=== PATIENT | female | born 1985 | race Caucasian/White ===

== ENCOUNTER 2021-05-11 16:26 | Emergency (ER) | payer OTHER, SELFPAY ==
[2021-05-11 16:36] VITALS: BP 151/98; PULSE 103; RESP 18; TEMP 37.2; O2SAT 98
[2021-05-11 16:45] VITALS: BP 151/98; PULSE 103; RESP 18; TEMP 37.2; O2SAT 98
--- NOTE | 2021-05-11 16:49 | ED.URI ---
HPI - URI/Sore Throat General Chief Complaint: Upper Respiratory Infection Stated Complaint: Sinus Time Seen by Provider: 05/11/21 16:50 Source: patient Mode of arrival: ambulatory Limitations: no limitations History of Present Illness HPI Narrative: Perlita Vickers is a 35 yo female with PMH of anxiety who [facility] with green discharge from her nose and coughing she has chronic sinus issues and has multiple sinus infections each year. She is in symptoms last 4 to 5 days and things are worsening. Currently is not febrile voices normal but she is clearly congested; has been taking [id number] medication using humidifier at night Related Data Home Medications Medication Instructions Recorded Confirmed cholecalciferol (vitamin D3) 125 mcg PO DAILY 05/11/21 05/11/21 clonazepam 1 mg PO DAILY 05/11/21 05/11/21 escitalopram oxalate 20 mg PO DAILY 05/11/21 05/11/21 hydroxyzine HCl 25 mg PO PRN PRN 05/11/21 05/11/21 Allergies Allergy/AdvReac Type Severity Reaction Status Date / Time amoxicillin Allergy Intermediate Hives / Verified 05/11/21 16:45 Red Face strawberry AdvReac Intermediate THROAT Verified 05/11/21 16:45 SWELLS Chlorine AdvReac Intermediate SWELLING Uncoded 05/11/21 16:45 Review of Systems Review of Systems: CONSTITUTIONAL: Denies fever, chills, sweats. EYES: Denies visual changes, redness, discharge. ENT: Has rhinorrhea, has congestion, sore throat, otalgia. CARDIOVASCULAR: Denies chest pain, palpitations, edema. RESPIRATORY: Denies dyspnea, wheezing, has productive cough GASTROINTESTINAL: Denies abdominal pain, nausea, vomiting, diarrhea. GENITOURINARY: Denies dysuria, hematuria, abnormal discharge SKIN: Denies rash or itching. NEUROLOGIC: Denies numbness, or focal weakness. PSYCHIATRIC: Denies anxiety or depression. [facility] Past Medical History Medical History No acute medical problems Family History Family History Mother Hypertension Father Diabetes mellitus Social History Social History (Updated 05/11/21 @ 17:00 by Patricia Pichardo CNP) Smoking packs per day: 0.45 Smoking cigarettes per day: 9.0 Smoking status: Current every day smoker Additional smoking assessment comments: Gradually trying to cut back cigarette consumption Alcohol intake: never Living arrangements: with family Occupation/Education: student Comments At time of signature, I agree with nursing past medical, surgical, social and family history. There is no relevant family history pertinent to the presenting complaint. Exam Narrative: GENERAL: This is a well-nourished, well-developed patient, in mild distress. HEAD: normocephalic, atraumatic. EYES: Sclera clear/white. Vision is grossly intact. EARS: External ears normal, auditory canals erythema and without drainage, TMs bulging without perforation. Hearing grossly intact. NOSE: External nose normal with nasal discharge, nares without redness, has rhinorrhea. THROAT: Mucous membranes moist, posterior pharynx mild erythema NECK: Neck supple, CARDIOVASCULAR: Regular rate and rhythm without murmurs, gallops, or rubs. RESPIRATORY: Clear to auscultation. Breath sounds equal bilaterally. No wheezes, rales, or rhonchi. GASTROINTESTINAL: Abdomen soft, SKIN: warm, intact with no suspicious lesions or rash, good texture and turgor. NEURO: awake, alert, and oriented to person, place and time. There were no obvious focal neurologic abnormalities. Steady gait EXTREMITIES: Normal range of motion. BACK: Nontender without deformity Course Course Emergency Course: Patient comes with 4 to 5 days of chronic congestion green mucus and ear pain, has productive cough. History of multiple sinus infection Discussed antibiotic stewardship and treatment in the past and started on steroids and Z-Jovani Vital Signs Vital signs: Vital Signs Temperat
== END 2021-05-11 17:04 | disposition home or self-care (01) ==
LOC: EXPTROY 16:28
PROVIDERS: Emergency Provider Nurse Practitioner
DX: J01.11 Acute recurrent frontal sinusitis (principal); F17.200 Nicotine dependence, unspecified, uncomplicated; F41.9 Anxiety disorder, unspecified
CPT/HCPCS: 99213; G0463

== ENCOUNTER 2022-08-06 10:03 | Emergency (ER) | payer OTHER, SELFPAY ==
[2022-08-06 10:13] VITALS: BP 149/88; PULSE 115; RESP 18; TEMP 36.6; O2SAT 100
[2022-08-06 10:19] VITALS: BP 149/88; PULSE 115; RESP 18; TEMP 36.6; O2SAT 100
--- NOTE | 2022-08-06 10:21 | ED.URI ---
HPI - URI/Sore Throat General Chief Complaint: Upper Respiratory Infection Stated Complaint: Lt Facial Swelling,Bilateral Ear Irritation Time Seen by Provider: 08/06/22 10:14 Source: patient Mode of arrival: ambulatory Limitations: no limitations History of Present Illness HPI Narrative: Patient presents today with a 4 week history of sinus pressure, postnasal drip, frontal headache. States the left side of her face also feels swollen. Denies fever or cough. She has been taking Tylenol for her headache. States she also takes hydroxyzine for her anxiety. Related Data Home Medications Medication Instructions Recorded Confirmed hydroxyzine HCl 25 mg tablet 25 mg PO PRN PRN Anxiety 05/11/21 08/06/22 buspirone 15 mg tablet 15 mg PO TID 08/06/22 08/06/22 lisinopril 30 mg tablet 30 mg PO DAILY 08/06/22 08/06/22 propranolol 10 mg tablet 10 mg DAILY 08/06/22 08/06/22 venlafaxine 75 mg capsule,extended 75 mg PO DAILY 08/06/22 08/06/22 release 24 hr Allergies Allergy/AdvReac Type Severity Reaction Status Date / Time amoxicillin Allergy Intermediate Hives / Verified 08/06/22 10:16 Red Face strawberry AdvReac Intermediate THROAT Verified 08/06/22 10:16 SWELLS Chlorine AdvReac Intermediate SWELLING Uncoded 08/06/22 10:16 Review of Systems Review of Systems: CONSTITUTIONAL: Denies body aches, fever, chills, or sweats. EYES: Denies visual changes, redness, or discharge. ENT: Denies rhinorrhea, congestion, sore throat, or otalgia.+ sinus pressure, postnasal drip CARDIOVASCULAR: Denies chest pain, palpitations, or edema. RESPIRATORY: Denies cough or dyspnea. GASTROINTESTINAL: Denies abdominal pain, nausea, vomiting, or diarrhea. GENITOURINARY: Denies dysuria or hematuria. SKIN: Denies rash, itching, or wounds. MUSCULOSKELETAL: Denies back pain, joint pain, or myalgia. NEUROLOGIC: Denies numbness, tingling, or weakness.+ frontal headache PSYCH: Denies depression or anxiety. PMFSH Past Medical History Medical History No acute medical problems Family History Family History Mother Hypertension Father Diabetes mellitus Social History Social History Smoking packs per day: 0.45 Smoking cigarettes per day: 9.0 Smoking status: Current every day smoker Additional smoking assessment comments: Gradually trying to cut back cigarette consumption Alcohol intake: never Comments At time of signature, I have reviewed and agree with nursing past medical, surgical, social and family history unless otherwise noted. Please see nursing chart for further information. There is no relevant family history pertinent to the presenting complaint Exam Narrative: GENERAL: Mildly ill appearing, well-nourished, and in no acute distress. HEAD: Normocephalic, atraumatic. EYES: EOMI. No redness or drainage. Conjunctivae normal. ENT: Mucous membranes pink and moist. Nares mildly congested. No rhinorrhea. TMs normal bilaterally. Throat normal with small amount of postnasal drainage. Uvula midline. Left frontal sinus tenderness. NECK: Normal AROM. Supple. No lymphadenopathy. CHEST: No respiratory distress. Clear to auscultation. HEART: Regular rate and rhythm. No murmur appreciated. Normal peripheral pulses. EXTREMITIES: Normal range of motion. No edema. SKIN: Warm, dry, no rash. Capillary refill normal. Normal skin turgor. NEURO: No focal deficits. Alert and oriented x3. Gait steady. PSYCH: Normal affect. No signs of depression or anxiety. Course Course Level of Care: Express Care Visit Vital Signs Vital signs: Vital Signs Temperature 97.8 F 08/06/22 10:13 Pulse Rate 115 H 08/06/22 10:13 Respiratory Rate 18 08/06/22 10:13 Blood Pressure 149/88 H 08/06/22 10:13 Pulse Oximetry 100 08/06/22 10:13 Oxygen Delivery Room
== END 2022-08-06 10:27 | disposition home or self-care (01) ==
PROVIDERS: Emergency Provider Nurse Practitioner
DX: J32.9 Chronic sinusitis, unspecified (principal); F41.9 Anxiety disorder, unspecified; F17.210 Nicotine dependence, cigarettes, uncomplicated
CPT/HCPCS: 99213; G0463

== ENCOUNTER 2022-08-15 16:44 | Emergency (ER) | payer OTHER, SELFPAY ==
--- NOTE | 2022-08-15 16:51 | ED.URI ---
HPI - URI/Sore Throat General Chief Complaint: Upper Respiratory Infection Stated Complaint: Sinus Time Seen by Provider: 08/15/22 16:58 Source: patient Mode of arrival: ambulatory Limitations: no limitations History of Present Illness HPI Narrative: Perlita is a 36-year-old female patient presenting to clinic today with complaints of sinus congestion times 5 weeks. She reports that she was seen approximately 2 weeks ago was given doxycycline for sinus infection and this did not improve her symptoms. She reports a lot of pressure on her left maxillary and frontal sinuses. MD elicited complaint: nasal congestion and sinus pain Related Data Home Medications Medication Instructions Recorded Confirmed hydroxyzine HCl 25 mg tablet 25 mg PO PRN PRN Anxiety 05/11/21 08/06/22 buspirone 15 mg tablet 15 mg PO TID 08/06/22 08/06/22 lisinopril 30 mg tablet 30 mg PO DAILY 08/06/22 08/06/22 propranolol 10 mg tablet 10 mg DAILY 08/06/22 08/06/22 venlafaxine 75 mg capsule,extended 75 mg PO DAILY 08/06/22 08/06/22 release 24 hr Allergies Allergy/AdvReac Type Severity Reaction Status Date / Time amoxicillin Allergy Intermediate Hives / Verified 08/06/22 10:16 Red Face strawberry AdvReac Intermediate THROAT Verified 08/06/22 10:16 SWELLS Chlorine AdvReac Intermediate SWELLING Uncoded 08/06/22 10:16 Review of Systems Review of Systems: Pertinent positives per HPI. Patient denies any fever, chills, rash, headache, visual changes, dizziness, cough, shortness of breath, chest pain, palpitations, nausea, vomiting, diarrhea, constipation, abdominal pain, or any urinary issues. [facility] Past Medical History Medical History No acute medical problems Family History Family History Mother Hypertension Father Diabetes mellitus Social History Social History Smoking packs per day: 0.45 Smoking cigarettes per day: 9.0 Smoking status: Current every day smoker Additional smoking assessment comments: Gradually trying to cut back cigarette consumption Alcohol intake: never Comments At the time of my signature, I reviewed and agree with the nursing past medical, surgical, social, and family history. There is no relevant family history pertinent to the patient complaint. Exam Narrative: General: Well-developed,obese, in no apparent distress Head: Normocephalic, atraumatic Eyes: Pupils equally round and reactive to light bilaterally, EOM intact, sclera and conjunctive clear, no discharge, lids normal Ears: TMs intact and clear, ear canals clear, no drainage, grossly hearing normal. Nose: Nares patent, yellow discharge, severe inflammation with sores in the anterior near and white straei, left maxillary and frontal sinus tenderness. Mouth: Oral pharynx without lesions or masses, good dentition, MMM. postnasal drip Neck: Supple, trachea midline, no enlargement of anterior or posterior cervical nodes, no thyroid masses or goiter palpable. Cardio: Regular rate and rhythm, s1 and s2 normal, no murmur appreciated. Resp: Clear to auscultation bilaterally, no rhonchi, rales, wheezing or rubs Course Course Emergency Course: Portions of this record may have been created with voice recognition software. Level of Care: Express Care Visit Vital Signs Vital signs: Vital Signs Temperature 36.8 C 08/15/22 16:55 Pulse Rate 109 H 08/15/22 16:55 Respiratory Rate 18 08/15/22 16:55 Blood Pressure 131/88 08/15/22 16:55 Pulse Oximetry 99 08/15/22 16:55 Oxygen Delivery Room Air 08/15/22 16:55 Temperature 36.8 C 08/15/22 16:55 Pulse Rate 109 H 08/15/22 16:55 Respiratory Rate 18 08/15/22 16:55 Blood Pressure 131/88 08/15/22 16:55 Pulse Oximetry 99 08/15/22 16:55 Oxygen Delivery Room Air 08/15/22 16:55 Vit
[2022-08-15 16:55] VITALS: BP 131/88; PULSE 109; RESP 18; TEMP 36.8; O2SAT 99
== END 2022-08-15 17:09 | disposition home or self-care (01) ==
PROVIDERS: Emergency Provider Nurse Practitioner Family
DX: J01.90 Acute sinusitis, unspecified (principal); F17.210 Nicotine dependence, cigarettes, uncomplicated
CPT/HCPCS: 99213; G0463

== ENCOUNTER 2022-08-18 17:50 | Emergency (ER) | payer OTHER, SELFPAY ==
[2022-08-18 17:58] VITALS: BP 122/81; PULSE 82; RESP 16; TEMP 36.2; O2SAT 100
--- NOTE | 2022-08-18 19:03 | ED.ALLEREA ---
HPI - Allergic Reaction General Chief complaint: Allergic Reaction Stated complaint: Allergic Reaction Source: patient Mode of arrival: ambulatory Limitations: no limitations History of Present Illness HPI narrative: 36-year-old female presents to [facility] with complaints of very minimal swelling and tingling sensation to her lips and tongue since this morning after taking her dose of cefdinir. Patient reports that she was placed on cefdinir here 3 days ago for sinusitis. Patient reports that she takes hydroxyzine 50 mg 4 times a day for anxiety. Patient reports that she called her primary care provider who suggested that she come back here for an evaluation. Patient denies shortness of breath, wheezing, trouble swallowing or difficulty breathing. Patient denies rash. Patient reports that she has a history of allergic reactions to penicillin where she noticed a rash at that time. Patient reports that she feels like her sinus symptoms have slightly improved. Patient has been taking Flonase daily. MD complaint: other ( mild lip and tongue swelling) Onset (ago): hour(s) (10) Symptoms: lip swelling Severity: mild Treatment prior to arrival: steroids Related Data Home Medications Medication Instructions Recorded Confirmed hydroxyzine HCl 25 mg tablet 25 mg PO PRN PRN Anxiety 05/11/21 08/18/22 buspirone 15 mg tablet 15 mg PO TID 08/06/22 08/18/22 lisinopril 30 mg tablet 30 mg PO DAILY 08/06/22 08/18/22 propranolol 10 mg tablet 10 mg DAILY 08/06/22 08/18/22 venlafaxine 75 mg capsule,extended 75 mg PO DAILY 08/06/22 08/18/22 release 24 hr Allergies Allergy/AdvReac Type Severity Reaction Status Date / Time amoxicillin Allergy Intermediate Hives / Verified 08/18/22 18:33 Red Face strawberry AdvReac Intermediate THROAT Verified 08/18/22 18:33 SWELLS Chlorine AdvReac Intermediate SWELLING Uncoded 08/18/22 18:33 Review of Systems Constitutional: Constitutional: Denies chills, Denies fatigue, Denies fever(s) and Denies weakness ENT: Denies vertigo, Denies dizziness and Denies epistaxis Gastrointestinal: Gastrointestinal: Denies diarrhea, Denies nausea and Denies vomiting Musculoskeletal: Musculoskeletal: Denies arthralgias and Denies joint swelling Integumentary/Breasts: Comments: Very mild swelling and tingling sensation to lips and tongue Neurologic: Denies vertigo, Denies dizziness and Denies syncope [facility] Past Medical History Medical History No acute medical problems Family History Family History Mother Hypertension Father Diabetes mellitus Social History Social History Smoking packs per day: 0.45 Smoking cigarettes per day: 9.0 Smoking status: Current every day smoker Additional smoking assessment comments: Gradually trying to cut back cigarette consumption Alcohol intake: never Comments At time of signature, I agree with nursing past medical, surgical, social and family history. There is no relevant family history pertinent to the presenting complaint. Exam Const: General: healthy appearing, no acute distress and alert Nutritional Appearance: well nourished and obese Orientation/consciousness: patient oriented x3 Limitations: no limitations HENMT: Head: normal to inspection Ears: external ears normal and TM's normal bilaterally Face and sinus: normal facial exam Mouth: Yes Normal oral and palatal mucosa present, Yes lip normal and Yes moist mucous membranes Throat: posterior oropharynx normal and uvula midline Other: very mild sinus tenderness noted to left frontal; no obvious swelling noted to lips or tongue on examination. Eyes: Conjunctivae: conjunctivae normal Pupils: Equal, round and reactive pupils present Neck: Neck: normal visual inspection Resp: Effort & Inspection: normal respiratory effo
== END 2022-08-18 19:16 | disposition home or self-care (01) ==
PROVIDERS: Emergency Provider Nurse Practitioner Family
DX: R22.0 Localized swelling, mass and lump, head (principal); T36.1X5A Adverse effect of cephalosporins and other beta-lactam antibiotics, initial encounter; F17.210 Nicotine dependence, cigarettes, uncomplicated
CPT/HCPCS: 99211; G0463

== ENCOUNTER 2022-08-30 13:57 | Emergency (ER) | payer OTHER, SELFPAY | END 2022-08-30 15:10 | disposition left against medical advice (07) | PROVIDERS: Emergency Provider Internal Medicine Hematology & Oncology | DX: Z53.21 Procedure and treatment not carried out due to patient leaving prior to being seen by health care provider (principal) | CPT/HCPCS: 99199 ==

== ENCOUNTER 2022-10-13 11:14 | Emergency (ER) | payer OTHER, SELFPAY ==
[2022-10-13 11:57] VITALS: BP 126/108; PULSE 98; RESP 18; TEMP 36.5; O2SAT 98
--- NOTE | 2022-10-13 12:40 | ED.SKABFB ---
HPI - Skin/Abscess/Foreign Bdy General Chief complaint: Skin/Abscess/Foreign Body Stated complaint: rash Source: patient Mode of arrival: ambulatory Limitations: no limitations History of Present Illness HPI narrative: 36-year-old female presents to [facility] complains of rash underneath bilateral breasts for the last 10 days. Patient reports that she gets frequent ?sweat rashes under her breast frequently. Patient reports that she use [id number] Lotrimin cream and zinc oxide which then exacerbated the rash. Patient denies fever, body aches, chills, nausea, vomiting or diarrhea. MD complaint: rash Onset (ago): day(s) () Relieving factors: none Exacerbating factors: none Context: none Associated symptoms: denies other symptoms Treatments prior to arrival: OTC topical medication Related Data Home Medications Medication Instructions Recorded Confirmed hydroxyzine HCl 25 mg tablet 25 mg PO PRN PRN Anxiety 05/11/21 10/13/22 buspirone 15 mg tablet 15 mg PO TID 08/06/22 10/13/22 lisinopril 30 mg tablet 30 mg PO DAILY 08/06/22 10/13/22 propranolol 10 mg tablet 10 mg DAILY 08/06/22 10/13/22 venlafaxine 75 mg capsule,extended 75 mg PO DAILY 08/06/22 10/13/22 release 24 hr pantoprazole 40 mg tablet,delayed 40 mg PO DIRECTED 10/13/22 10/13/22 release Allergies Allergy/AdvReac Type Severity Reaction Status Date / Time amoxicillin Allergy Intermediate Hives / Verified 08/18/22 18:33 Red Face cefdinir Allergy Intermediate Swelling Verified 10/13/22 12:13 of Lip/Tongue/Throat strawberry AdvReac Intermediate THROAT Verified 08/18/22 18:33 SWELLS Chlorine AdvReac Intermediate SWELLING Uncoded 08/18/22 18:33 Review of Systems Constitutional: Constitutional: Denies chills, Denies fatigue, Denies fever(s) and Denies weakness ENT: Denies dizziness and Denies epistaxis Cardiovascular: Cardiovascular: Denies chest pain Respiratory: Respiratory: Denies cough, Denies dyspnea and Denies wheezing Gastrointestinal: Gastrointestinal: Denies diarrhea, Denies nausea and Denies vomiting Integumentary/Breasts: Skin/Breast: Denies pruritus, Denies erythema, Reports rash and Denies skin ulcer PMFSH Past Medical History Medical History No acute medical problems Family History Family History Mother Hypertension Father Diabetes mellitus Social History Social History Smoking packs per day: 0.45 Smoking cigarettes per day: 9.0 Smoking status: Current every day smoker Additional smoking assessment comments: Gradually trying to cut back cigarette consumption Alcohol intake: never Living arrangements: with family Occupation/Education: student Comments At time of signature, I agree with nursing past medical, surgical, social and family history. There is no relevant family history pertinent to the presenting complaint. Exam Const: General: healthy appearing and no acute distress Nutritional Appearance: well nourished Orientation/consciousness: patient oriented x3 Limitations: no limitations HENMT: Head: normal to inspection Eyes: Conjunctivae: conjunctivae normal Resp: Effort & Inspection: normal respiratory effort and not labored Auscultation: clear to auscultation bilaterally, no crackles, no rales and no rhonchi Cardio: Rate: regular rate Rhythm: regular rhythm Heart sounds: no murmurs Skin: General skin exam: normal color Wounds: no wounds Other: Erythematous fluid-filled rash noted under bilateral breasts. Rash appears to resemble irritated excoriated skin, possibly reaction type rash from previous appointments that were used rash is located under bilateral breasts so shingles is ruled out. There is mild amount of surrounding erythema noted. Neuro: General: patient oriented x3 Psych: Affect: normal
[2022-10-13 12:50] VITALS: BP 121/87
== END 2022-10-13 12:54 | disposition home or self-care (01) ==
PROVIDERS: Emergency Provider Nurse Practitioner Family
DX: R21 Rash and other nonspecific skin eruption (principal); F17.219 Nicotine dependence, cigarettes, with unspecified nicotine-induced disorders
CPT/HCPCS: 99213; G0463

== ENCOUNTER 2025-05-16 08:39 | Emergency (ER) | payer OTHER, SELFPAY ==
[2025-05-16 08:49] VITALS: BP 150/83; PULSE 90; RESP 16; TEMP 36.6; O2SAT 98
--- NOTE | 2025-05-16 09:06 | ED.URI ---
HPI - URI/Sore Throat General Chief Complaint: Upper Respiratory Infection Stated Complaint: Sinus Infection Symptoms Time Seen by Provider: 05/16/25 08:55 Source: patient and RN notes reviewed Mode of arrival: ambulatory Limitations: no limitations History of Present Illness HPI Narrative: 39-year-old female presents Express Care complaining of upper respiratory symptoms for last week. Patient said her symptoms started to improve however last 5 days they have been progressively worsening. Patient reports left sinus pressure, mucopurulent nasal drainage, headache. Patient denies any cough, runny nose, sore throat, nausea vomiting, diarrhea chest pain, difficulty breathing, any other symptoms. Patient denies any significant past medical history. Related Data Home Medications ?Medication ?Instructions ?Recorded ?Confirmed ?Last Taken ?Type hydroxyzine HCl 25 mg tablet 25 mg PO PRN PRN Anxiety 05/11/21 10/13/22 Unknown History buspirone 15 mg tablet 15 mg PO TID 08/06/22 10/13/22 Unknown History lisinopril 30 mg tablet 30 mg PO DAILY 08/06/22 10/13/22 Unknown History propranolol 10 mg tablet 10 mg DAILY 08/06/22 10/13/22 Unknown History venlafaxine 75 mg capsule,extended 75 mg PO DAILY 08/06/22 10/13/22 Unknown History release 24 hr pantoprazole 40 mg tablet,delayed 40 mg PO DIRECTED 10/13/22 10/13/22 Unknown History release Allergies Allergy/AdvReac Type Severity Reaction Status Date / Time amoxicillin Allergy Intermediate Hives / Verified 05/16/25 08:55 Red Face cefdinir Allergy Intermediate Swelling Verified 05/16/25 08:55 of Lip/Tongue/Throat strawberry AdvReac Intermediate THROAT Verified 05/16/25 08:55 SWELLS Chlorine AdvReac Intermediate SWELLING Uncoded 08/18/22 18:33 Review of Systems Review of Systems: CONSTITUTIONAL: Denies fever, chills, or sweats. EYES: Denies visual changes, redness, or discharge. ENT: Denies rhinorrhea, sore throat, or otalgia. Positive for sinus pressure and congestion. CARDIOVASCULAR: Denies chest pain, palpitations, or edema. RESPIRATORY: Denies cough or dyspnea. GASTROINTESTINAL: Denies abdominal pain, nausea, vomiting, or diarrhea. GENITOURINARY: Denies dysuria or hematuria. SKIN: Denies rash or itching. MUSCULOSKELETAL: Denies back pain, joint pain, or myalgia. NEUROLOGIC: Denies headache, numbness, or weakness. PSYCHIATRIC: Denies anxiety or depression. All other systems reviewed are negative, except as documented in HPI. [facility] Past Medical History Medical History No acute medical problems Family History Family History Mother Hypertension Father Diabetes mellitus Social History Social History Smoking packs per day: 0.45 Smoking cigarettes per day: 9.0 Smoking status: Current every day smoker Additional smoking assessment comments: Gradually trying to cut back cigarette consumption Alcohol intake: never Living arrangements: with family Occupation/Education: student Comments At the time of my signature, I reviewed and agree with the nursing past medical, surgical, social, and family history. There is no relevant family history pertinent to the patient complaint. Exam Narrative: GENERAL: This is a well-nourished, well-developed adult, in no apparent distress. They are non ill-appearing, nontoxic appearing. HEAD: normocephalic, atraumatic. EYES: Sclera clear/white. Conjunctiva normal. Vision is grossly intact. Extraocular movements intact EARS: External ears normal, auditory canals clear and without drainage, TMs normal without perforation. Hearing grossly intact. NOSE: External nose normal with no obvious nasal discharge, right nasal turbinates pain without redness swelling, left nasal turbinates erythematous with exudate present, no rhinorrhea. THROAT: Mucous membranes moist, posterior pharynx boggy without erythema or swelling. Uvula midline. Postnasal drip present. NECK: Neck supple, non-tender without lymphadenopathy, masses or thyromegaly. CARDIOVASCULAR: Regular rate and rhythm without murmurs, gallops, or rubs. RESPIRATORY: Clear to auscultation. Breath sounds equal bilaterally. No wheezes, rales, or rhonchi. SKIN: warm, Dry, intact with no suspicious lesions or rash, good texture and turgor. NEURO: awake, alert, and oriented to person, place and time. There were no obvious focal neurologic abnormalities. EXTREMITIES: No joint tenderness, effusion, or edema noted. Course Course Emergency Course: Portions of this record may have been created with voice recognition software Level of Care: Express Care Visit Vital Signs Vital signs: Vital Signs Temperature 97.8 F 05/16/25 08:49 Pulse Rate 90 05/16/25 08:49 Respiratory Rate 16 05/16/25 08:49 Blood Pressure 150/83 H 05/16/25 08:49 Pulse Oximetry 98 05/16/25 08:49 Temperature 97.8 F 05/16/25 08:49 Pulse Rate 90 05/16/25 08:49 Respiratory Rate 16 05/16/25 08:49 Blood Pressure 150/83 H 05/16/25 08:49 Pulse Oximetry 98 05/16/25 08:49 Reviewed MDM - URI/Sore Throat MDM Narrative Medical decision making narrative: Given patient's length of symptoms and worsening symptoms likely she has developed a bacterial sinusitis. Patient has anaphylactic reaction to penicillins, will treat her with doxycycline. Discussed physical exam findings. Advised supportive measures and signs/symptoms to go to the ER. Pt is appropriate for outpt treatment and f/u. Differential Diagnosis Differential diagnosis: Likely upper respiratory infection, sinusitis, viral infection and pharyngitis Critical Care Time Critical Care Time Critical Care Time: No Discharge Plan Discharge Clinical Impression: Sinusitis Qualifiers: Sinusitis location: unspecified location Chronicity: acute Recurrence: non-recurrent Qualified Code(s): J01.90 - Acute sinusitis, unspecified Patient Disposition: Home Condition: Stable Instructions: Antibiotic Form, Sinusitis (ED) Additional Instructions: Take the antibiotics as directed and complete the course even if you start to feel better. Wear sunscreen if you are going to be outside while taking doxycycline. You may use a Neti pot saline rinse 3 times a day with lukewarm distilled water Continue to take Tylenol or Motrin for pain. Follow instructions on the bottle. Use a humidifier or vaporizer at night. Drink plenty of water. 8-10 glasses per day. Use flonase 2 times per day for 5 days then as needed Take mucinex 2 times per day and be sure to take with 8oz of water. Follow up with Primary provider in 3-5 days Please go to the ER if he develops any difficulty breathing, worsening symptoms, or any other concerns Patient Language: Croatian Prescriptions: New doxycycline monohydrate 100 mg capsule 100 mg PO BID 7 Days Qty: 14 0RF No Action hydroxyzine HCl 25 mg tablet 25 mg PO PRN PRN (Reason: Anxiety) venlafaxine 75 mg capsule,extended release 24hr 75 mg PO DAILY propranolol 10 mg tablet 10 mg DAILY lisinopril 30 mg tablet 30 mg PO DAILY buspirone 15 mg tablet 15 mg PO TID pantoprazole 40 mg tablet,delayed release (DR/EC) 40 mg PO DIRECTED triamcinolone acetonide 0.1 % cream 1 applic topical BID 7 Days Qty: 30 0RF nystatin 100,000 unit/gram powder 1 applic topical BID 10 Days Qty: 30 0RF Follow-up/Referrals: PHYSICIAN,PHOTOENGRAVING PROOFER APPRENTICE [Primary Care Provider, Internal Medicine] Time of Disposition: 09:03
== END 2025-05-16 09:06 | disposition home or self-care (01) ==
DX: J01.90 Acute sinusitis, unspecified (principal); F17.210 Nicotine dependence, cigarettes, uncomplicated
CPT/HCPCS: 99213; G0463